=== PATIENT | female | born 1955 | race Caucasian/White ===

== ENCOUNTER 2021-01-10 05:40 | Inpatient (IN) | payer OTHER ==
[2021-01-08 09:01] LABS: BASOPHILS % (AUTO) 1 % (0-1); EOSINOPHILS % (AUTO) 1 % (1-7); LYMPHOCYTES % (AUTO) 44 % (22-44); MEAN CORPUSCULAR HEMOGLOBIN 31.8 pg (27.0-34.8); MEAN CORPUSCULAR HGB CONC 33.7 g/dL (32.4-35.8); MEAN PLATELET VOLUME 7.5 fL (7.4-10.4); MONOCYTES % (AUTO) 7 % (2-9); NEUTROPHILS % (AUTO) 46 % (42-75); PLATELET COUNT 365 x10^3/uL (130-400); RED BLOOD COUNT 4.87 x10^6/uL (3.82-5.3); RED CELL DISTRIBUTION WIDTH 12.7 % (9.6-15.2)
[2021-01-08 09:04] LABS: MICROSCOPIC NOT IND
[2021-01-08 09:04] LABS: MD NO
[2021-01-08 09:16] LABS: ALANINE AMINOTRANSFERASE 36 U/L (12-78); ALBUMIN 4.2 g/dL (3.4-5.0); ANION GAP 5 mmol/L (5-15); CALCIUM 9.4 mg/dL (8.5-10.1); CHLORIDE 107 mmol/L (98-107)
[2021-01-08 09:18] LABS: ALKALINE PHOSPHATASE 104 U/L (45-117); BILIRUBIN,TOTAL 0.3 mg/dL (0.2-1.0); CREATININE 0.94 mg/dL (0.55-1.02); TOTAL PROTEIN 7.7 g/dL (6.4-8.2)
[~2021-01-10] VITALS: Ht 160 cm; Wt 79.0 kg
[~2021-01-10 05:40] MED LIST: AMLO1CAP5 PO; ASCO500C2 PO; CALC-316 PO; CHOL10003 PO; LEVO50TA5 PO; MAGN500C9 PO; MULT-658 PO; STRONTIUM PO; UBIQ100C2 PO; VENL75TA PO
[2021-01-10] MEDS ORDERED: CHLORHEXIDINE 15 ML UDC ONE (06:13)
[2021-01-10] MEDS ORDERED: LIDOCAINE-MPF 1%, 2ML ONE (06:14)
[2021-01-10] MEDS ORDERED: LIDOCAINE-MPF 1%, 2ML INFIL ONE (06:30)
[2021-01-10] MEDS ORDERED: LACTATED RINGERS 1,000 ML IV SCH (06:30)
[2021-01-10] MEDS ORDERED: CHLORHEXIDINE 15 ML UDC PO ONE (06:30)
[2021-01-10] MEDS ORDERED: MIDAZOLAM 1 MG/ML, 2ML ONE (06:57)
[2021-01-10] MEDS ORDERED: FENTANYL PF 250 MCG/5ML ONE (06:57)
[2021-01-10] MEDS ORDERED: ACETAMINOPHEN 325 MG TABLET PO PRN (07:30)
[2021-01-10] MEDS ORDERED: ONDANSETRON 2MG/ML, 2ML IVPush PRN (07:30)
[2021-01-10] MEDS ORDERED: MEPERIDINE/PF 25MG/0.5ML IVPush PRN (07:30)
[2021-01-10] MEDS ORDERED: LABETALOL 5MG/ML, 20ML IV PRN (07:30)
[2021-01-10] MEDS ORDERED: OXYcodone 5 MG/5 ML ORAL.SOL UDC PO PRN (07:30)
[2021-01-10] MEDS ORDERED: PROMETHAZINE 25 MG/ML, 1ML IVPush PRN (07:30)
[2021-01-10] MEDS ORDERED: METHOCARBAMOL 1,000 MG in DEXTROSE 5% 100 ML IV PRN (07:30)
[2021-01-10] MEDS ORDERED: EPHEDRINE 50 MG/ML, 1ML IVPush PRN (07:30)
[2021-01-10] MEDS ORDERED: HYDROmorphone 1 MG/ML, 1ML INJ IVPush PRN (07:30)
[2021-01-10] MEDS ORDERED: LORazepam 2 MG/ML, 1ML IVPush PRN (07:30)
[2021-01-10] MEDS ORDERED: hydrALAzine 20 MG/ML, 1ML IV PRN (07:30)
[2021-01-10] MEDS ORDERED: TRANEXAMIC ACID 100 MG/ML, 10ML ONE ×2 (07:47→07:48)
[2021-01-10] MEDS ORDERED: VANCOMYCIN 1,000 MG ONE (07:50)
[2021-01-10] MEDS ORDERED: HYDROmorphone 1 MG/ML, 1ML INJ ONE ×2 (08:03→08:40)
[2021-01-10] MEDS ORDERED: NEOSTIGMINE 1 MG/ML, 10ML ONE (09:00)
[2021-01-10] MEDS ORDERED: GLYCOPYRROLATE 0.2MG/1ML, 5ML ONE (09:00)
[2021-01-10] MEDS ORDERED: CEFAZOLIN 1,000 MG ONE (09:00)
[2021-01-10] MEDS ORDERED: ONDANSETRON 2MG/ML, 2ML ONE (09:00)
[2021-01-10] MEDS ORDERED: SUCCINYLCHOLINE 20 MG/ML, 10ML ONE (09:00)
[2021-01-10] MEDS ORDERED: ROCURONIUM 10MG/ML,5ML ONE (09:00)
[2021-01-10] MEDS ORDERED: PROPOFOL 10 MG/ML, 20ML ONE (09:00)
[2021-01-10] MEDS ORDERED: DEXAMETHASONE 4 MG/ML, 1ML ONE (09:00)
[2021-01-10] MEDS ORDERED: EPINEPHRINE 1 MG/ML, 1ML ONE (09:35)
[2021-01-10] MEDS ORDERED: BUPIVACAINE/PF 0.5% ONE (09:35)
[2021-01-10] MEDS ORDERED: MAGNESIUM HYDROXIDE 8%, 30ML UDC PO PRN (10:30)
[2021-01-10] MEDS ORDERED: POLYETHYLENE GLYCOL 17 GM PACKET PO PRN (10:30)
[2021-01-10] MEDS ORDERED: KETOROLAC 30 MG/1 ML IV SCH (10:30)
[2021-01-10] MEDS ORDERED: BISACODYL 10 MG SUPP PR PRN (10:30)
[2021-01-10] MEDS ORDERED: ONDANSETRON 4 MG TABLET PO PRN (10:30)
[2021-01-10] MEDS ORDERED: OXYcodone IR 5MG TABLET PO PRN (10:30)
[2021-01-10] MEDS: FENTANYL PF 100 MCG/2ML IV PRN ×4 (10:30→10:50)
[2021-01-10] MEDS ORDERED: MORPHINE SULFATE 4 MG/ML, 1ML IVPush PRN (10:30)
[2021-01-10] MEDS ORDERED: OXYcodone 5 MG/5 ML ORAL.SOL UDC ONE (10:31)
[2021-01-10] MEDS ORDERED: FENTANYL PF 100 MCG/2ML ONE ×2 (10:31→10:42)
[2021-01-10] MEDS: ACETAMINOPHEN 325 MG TABLET PO SCH ×4 (10:40→22:29)
[2021-01-10] MEDS ORDERED: KETOROLAC 30 MG/1 ML ONE (10:42)
[2021-01-10] MEDS: CEFAZOLIN PMX 1GM/50ML 50 ML IVPB SCH (16:44)
[2021-01-10] MEDS: KETOROLAC 30 MG/1 ML IV SCH (18:38)
[2021-01-10] MEDS ORDERED: ARTIFICIAL TEARS 15 DROP/ML BOTTLE EACHEYE PRN (19:00)
[2021-01-10 19:13] VITALS: BP 113/78
[2021-01-10] MEDS ORDERED: VANCOMYCIN PMX 1GM/200ML 200 ML IVPB ONE (20:00)
[2021-01-10] MEDS: DOCUSATE 100 MG CAPSULE PO SCH (20:14)
[2021-01-10] MEDS: POTASSIUM CHLORIDE 20 MEQ in D5%-0.45% NACL 1,000 ML IV SCH (20:30)
[2021-01-10] MEDS ORDERED: GABAPENTIN 300 MG CAPSULE PO SCH (21:00)
[2021-01-11 00:02] VITALS: BP 107/70
[2021-01-11] MEDS: CEFAZOLIN PMX 1GM/50ML 50 ML IVPB SCH (01:07)
[2021-01-11] MEDS: ACETAMINOPHEN 325 MG TABLET PO SCH ×3 (02:25→09:42)
[2021-01-11] MEDS: KETOROLAC 30 MG/1 ML IV SCH (02:25)
[2021-01-11 03:42] VITALS: BP 103/66
[2021-01-11] MEDS: POTASSIUM CHLORIDE 20 MEQ in D5%-0.45% NACL 1,000 ML IV SCH (05:13)
[2021-01-11 05:42] LABS: BASOPHILS % (AUTO) 0 % (0-1); EOSINOPHILS % (AUTO) 0 % (1-7); LYMPHOCYTES % (AUTO) 21 % (22-44); MEAN CORPUSCULAR HEMOGLOBIN 32.2 pg (27.0-34.8); MEAN PLATELET VOLUME 7.4 fL (7.4-10.4); MONOCYTES % (AUTO) 5 % (2-9); NEUTROPHILS % (AUTO) 73 % (42-75); PLATELET COUNT 311 x10^3/uL (130-400); RED BLOOD COUNT 3.46 x10^6/uL (3.82-5.3); RED CELL DISTRIBUTION WIDTH 12.8 % (9.6-15.2)
[2021-01-11 05:48] LABS: CHLORIDE 107 mmol/L (98-107)
[2021-01-11 05:51] LABS: MD NO
[2021-01-11 05:57] LABS: ANION GAP 7 mmol/L (5-15); CALCIUM 8.3 mg/dL (8.5-10.1); CREATININE 0.95 mg/dL (0.55-1.02)
[2021-01-11] MEDS ORDERED: ENOXAPARIN 40 MG/0.4 ML SQ SCH (06:00)
[2021-01-11 06:31] VITALS: BP 104/68
[2021-01-11] MEDS: DOCUSATE 100 MG CAPSULE PO SCH (08:36)
== END 2021-01-11 12:27 | disposition home or self-care (01) | DRG 470 ==
LOC: OUT 05:40 → 4NE 10:09 → OUT 11:37 → DCLOUNGE 01-11 12:15
PROVIDERS: ADMIT Orthopaedic Surgery; ATTEND Orthopaedic Surgery
PROC: 0SR902A Replacement of Right Hip Joint with Metal on Polyethylene Synthetic Substitute, Uncemented, Open Approach (ICD-10-PCS; principal; 2021-01-10 07:30)
DX: M16.11 Unilateral primary osteoarthritis, right hip (principal); Z20.822 Contact with and (suspected) exposure to COVID-19
CPT/HCPCS: 36415; 72170; 73501; J3490; S0020; 80048; 80053; 81003; 85025; 86850; 86900; 87081; 87147; 93005; C1713; G0378; J0171; J0690; J1100; J1170; J1650; J1885; J2250; J2405; J2704; J2710; J3010; J3370; C1776; J0330; J2800; J7120; U0003